=== PATIENT | female | born 1940 | race American Indian/Alaskan Native ===

== ENCOUNTER 2017-04-16 02:25 | Observation (INO) | payer MEDICARE, MEDICAID ==
--- NOTE | 2017-04-16 02:54 | ED PDOC ---
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 Also notes some occassional mild shortness of breath. Denies any fever, chills, headache, dizziness, abdominal pain, nausea, vomiting, diarrhea, urinary symptoms, or any other complaints at this time. PMD: Dr. Pedraza Time/Duration: Other (yesterday night ) Symptom Onset: Gradual Symptom Course: Unchanged Severity Level: Mild Activities at Onset: Light Context: Home Past Medical History - Provider Review Nursing Documentation Reviewed: Yes - Cardiac Hx Cardiac Disorders: Yes Hx Congestive Heart Failure: Yes Hx Hypertension: Yes - Pulmonary Hx Respiratory Disorders: No - Neurological Hx Neurological Disorder: Yes HX Cerebrovascular Accident: Yes (x 2,20 yrs. ago and 3 yrs. ago) - HEENT Hx Cataracts: Yes (bilateral) - Renal Hx Kidney Stones: Yes (many years ago x 1) - Endocrine/Metabolic Hx Endocrine Disorders: Yes Hx Diabetes Mellitus Type 2: Yes - Hematological/Oncological Hx Blood Disorders: No - Integumentary Hx Dermatological Disorder: No - Musculoskeletal/Rheumatological Hx Unsteady Gait: Yes (pt. is chairfast) - Gastrointestinal Hx Gastrointestinal Disorders: No - Genitourinary/Gynecological Hx Incontinence: Yes - Psychiatric Hx Psychophysiologic Disorder: No Hx Substance Use: No - Surgical History Hx [place]ary Stent: Yes ([place]) Hx Hysterectomy: Yes Other/Comment: right lumpectomy - Suicidal Assessment Feels Threatened In Home Enviroment: No Family/Social History - Physician Review Nursing Documentation Reviewed: Yes Family/Social History: No Known Family HX Smoking Status: Never Smoked Hx Alcohol Use: No Hx Substance Use: No Hx Substance Use Treatment: No Allergies/Home Meds Allergies/Adverse Reactions: Allergies No Known Allergies Allergy (Verified 04/16/17 13:23) Home Medications: Home Meds Medication Instructions Recorded Confirmed Atorvastatin [Lipitor] 20 mg PO DAILY 04/16/17 04/16/17 Celecoxib [Celebrex] 200 mg PO BID 04/16/17 04/16/17 Clopidogrel [Plavix] 75 mg PO DAILY 04/16/17 04/16/17 Ezetimibe [Zetia] 10 mg PO DAILY 04/16/17 04/16/17 Isosorbide Mononitrate [Imdur] 60 mg PO DAILY 04/16/17 04/16/17 Metoprolol Tartrate [Lopressor] 50 mg PO BID 04/16/17 04/16/17 Pantoprazole Sodium [Protonix] 20 mg PO DAILY 04/16/17 04/16/17 Potassium Chloride [Klor-Con 10] 10 meq PO DAILY 04/16/17 04/16/17 hydroCHLOROthiazide [Microzide] 50 mg PO DAILY 04/16/17 04/16/17 metFORMIN [glucOPHAGE] 500 mg PO DAILY 04/16/17 04/16/17 miSOPROStol [Cytotec] 200 mcg PO PRN PRN 04/16/17 04/16/17 Review of Systems - Physician Review All systems were reviewed & negative as marked: Yes - Review of Systems Constitutional: Normal. absent: Fatigue, Fevers Respiratory: SOB. absent: Cough, Sputum Cardiovascular: Chest Pain Gastrointestinal: Normal. absent: Abdominal Pain, Diarrhea, Nausea, Vomiting Neurological: Normal. absent: Headache, Dizziness Psychiatric: Normal Physical Exam Vital Signs Reviewed: Yes Vital Signs Temp Pulse Resp BP Pulse Ox 04/16/17 08:00 96 H 17 136/94 H 100 04/16/17 06:54 86 18 159/80 H 99 04/16/17 06:23 159/80 H 04/16/17 04:43 78 18 149/75 99 04/16/17 02:43 98.1 F 86 174/92 H 100 Temperature: Afebrile Blood Pressure: Hypertensive Pulse: Regular Respiratory Rate: Normal Appearance: Positive for: Well-Appearing, Non-Toxic Pain Distress: None Mental Status: Positive for: Alert and Oriented X 3 - Systems Exam Head: Present: Atraumatic, Normocephalic Pupils: Present: PERRL Conjunctiva: Present: Normal Mouth: Present: Moist Mucous Membranes Respiratory/Chest: Present: Clear to Auscultation, Good Air Exchange. No: Respiratory Distress, Accessory Muscle Use Cardiovascular: Present: Regular Rate and Rhythm, Normal S1, S2. No: Murmurs Abdomen: Present: Normal Bowel Sounds. No: Tenderness, Distention, Peritoneal Signs Upper Extremity: Present: Normal Inspection. No: Cyanosis, Edema Lower Extremity: Present: Normal Inspection. No: Edema Neurological: Present: GCS=15, CN II-XII Intact, Speech Normal, Motor Func Grossly Intact, Normal Sensory Function Skin: Present: Warm, Dry, Normal Color. No: Rashes Psychiatric: Present: Alert, Oriented x 3, Normal Insight, Normal Concentration Medical Decision Making ED Course and Treatment: 04/16/17 02:56 Impression: A 76 year old female who presents to the emergency department complaining of chest pain and mild shortness of breath since yesterday night. Plan: -- EKG -- Labs, cardiac enzymes -- Chest X-ray -- Reassess and disposition Progress Notes: 04/16/17 02:57 EKG interpreted by me: NSR @ 89 bpm. Right bundle branch block. Left anterior hemiblock. LVH. non- specific ST/T changes. 04/16/17 05:59 Case discussed with who is aware and agrees with the plan to observe patient at telemetry. Accepts patient under service with on consult. - Lab Interpretations Lab Results: 04/16/17 03:13 04/16/17 03:13 Lab Results 04/16/17 03:13: WBC 10.2 D, RBC 4.35, Hgb 12.2, Hct 35.6 L, MCV 81.8, MCH 28.0 , MCHC 34.3, RDW 14.4, Plt Count 380, MPV 9.4 04/16/17 03:13: Sodium 135, Potassium 3.7, Chloride 95, Carbon Dioxide 30, Anion Gap 14, BUN 24 H, Creatinine 1.1, Est GFR ( Amer) 58, Est GFR (Non- Af Amer) 48, Random Glucose 190 H, Calcium 9.7, Total Bilirubin 0.7, AST 33, ALT 30, Alkaline Phosphatase 122, Lactate Dehydrogenase 486, Total Creatine Kinase 272 H, CK-MB (CK-2) 4.6 H, CK-MB (CK-2) % Cancelled, Troponin I 0.03 D, NT-Pro-B Natriuret Pep 995 H, Total Protein 8.5 H, Albumin 4.3, Globulin 4.2, Albumin/Globulin Ratio 1.0 L 04/16/17 03:13: PT 10.7, INR 0.99, APTT 28.3 - RAD Interpretation Radiology Orders: 04/16/17 02:55 CHEST PORTABLE [RAD] Stat - Medication Orders Current Medication Orders: Discontinued Medications Acetaminophen (Tylenol 325mg Tab) 650 mg PO Q4H PRN PRN Reason: Pain, moderate (4-7) Last Admin: 04/17/17 03:10 Dose: 650 mg Albuterol/Ipratropium (Duoneb 3 Mg/0.5 Mg (3 Ml) Ud) 3 ml IH TIDRESP PAYAM Last Admin: 04/18/17 08:24 Dose: 3 ml Albuterol/Ipratropium (Duoneb 3 Mg/0.5 Mg (3 Ml) Ud) 3 ml IH [id number] PRN PRN Reason: Shortness of Breath Aminophylline (Aminophylline 25 Mg/Ml Inj) Confirm Administered Dose 250 mg .ROUTE .STK-MED ONE Stop: 04/17/17 10:39 Last Admin: 04/17/17 11:44 Dose: 100 mg Aspirin (Aspirin) 325 mg PO ONCE STA Stop: 04/16/17 06:00 Last Admin: 04/16/17 06:20 Dose: 325 mg Aspirin (Ecotrin) 81 mg PO DAILY ON LICENSE OF [facility] Last Admin: 04/18/17 10:20 Dose: 81 mg Atorvastatin Calcium (Lipitor) 20 mg PO DIN ON LICENSE OF [facility] Last Admin: 04/17/17 16:55 Dose: 20 mg Clopidogrel Bisulfate (Plavix) 75 mg PO DAILY ON LICENSE OF [facility] Clopidogrel Bisulfate (Plavix) 75 mg PO DAILY ON LICENSE OF [facility] Last Admin: 04/18/17 10:22 Dose: 75 mg Furosemide (Lasix) 20 mg IVP ONCE ONE Stop: 04/16/17 06:00 Last Admin: 04/16/17 06:23 Dose: 20 mg Guaifenesin (Robitussin) 100 mg PO Q4H PRN PRN Reason: Cough Last Admin: 04/18/17 10:22 Dose: 100 mg Hydrochlorothiazide (Hydrodiuril) 50 mg PO DAILY ON LICENSE OF [facility] Last Admin: 04/18/17 10:20 Dose: 50 mg Ceftriaxone Sodium (Rocephin 1 Gram Ivpb) 1 gm in 100 mls @ 100 mls/hr IVPB DAILY ON LICENSE OF [facility] PRN Reason: Protocol Last Admin: 04/18/17 10:23 Dose: 100 mls/hr Magnesium Sulfate 2 gm/ Sodium (Chloride) 104 mls @ 102 mls/hr IVPB ONCE ONE Stop: 04/17/17 14:27 Last Admin: 04/17/17 15:26 Dose: 102 mls/hr Insulin Human Lispro (Humalog Low) 0 units SC ACHS PAYAM PRN Reason: Protocol Insulin Human Lispro (Humalog Low) 0 units SC [facility] PAYAM PRN Reason: Protocol Last Admin: 04/18/17 08:33 Dose: Not Given Non-Admin Reason: Blood Sugar Parameter Isosorbide Mononitrate (Imdur) 60 mg PO DAILY ON LICENSE OF [facility] Last Admin: 04/18/17 10:21 Dose: 60 mg Methylprednisolone (Solu-Medrol) 40 mg IVP DAILY ON LICENSE OF [facility] Last Admin: 04/18/17 10:23 Dose: 40 mg Metoprolol Tartrate (Lopressor) 25 mg PO Q12 ON LICENSE OF [facility] Last Admin: 04/16/17 10:07 Dose: 25 mg Metoprolol Tartrate (Lopressor) 50 mg PO BRKDIN ON LICENSE OF [facility] Last Admin: 04/18/17 10:21 Dose: 50 mg Pantoprazole Sodium (Protonix Ec Tab) 20 mg PO 0730 ON LICENSE OF [facility] Last Admin: 04/18/17 10:22 Dose: 20 mg Potassium Chloride (K-Dur 20 Meq Er Tab) 20 meq PO STAT STA Stop: 04/16/17 06:00 Last Admin: 04/16/17 06:21 Dose: 20 meq Regadenoson (Lexiscan) Confirm Administered Dose 0.4 mg IVP .STK-MED ONE Stop: 04/17/17 10:39 Last Admin: 04/17/17 11:44 Dose: 0.4 mg Tramadol HCl (Ultram) 50 mg PO TID PRN PRN Reason: Pain, moderate (4-7) - Scribe Statement The provider has reviewed the documentation as recorded by the Scribe Puja Levi Provider Attestation: Provider Scribe Attestation: All medical record entries made by the Scribe were at my direction and personally dictated by me. I have reviewed the chart and agree that the record accurately reflects my personal performance of the history, physical exam, medical decision making, and the department course for this patient. I have also personally directed, reviewed, and agree with the discharge instructions and disposition. Disposition/Present on Arrival - Present on Arrival Any Indicators Present on Arrival: No History of DVT/PE: No History of Uncontrolled Diabetes: No Urinary Catheter: No History of Decub. Ulcer: No History Surgical Site Infection Following: None - Disposition Have Diagnosis and Disposition been Completed?: Yes Diagnosis: Chest pain, CHF (congestive heart failure) Disposition: HOSPITALIZED Disposition Time: 05:58 Patient Plan: Observation Condition: STABLE
[2017-04-16 03:34] LABS: HEMATOCRIT 35.6 % (36.0-48.0); MEAN CELL VOLUME 81.8 fL (80.0-105.0); MEAN CORPUSCULAR HGB CONC 34.3 g/dl (31.0-37.0); MEAN PLATELET VOLUME 9.4 fl (7.0-11.0); RED CELL DISTRIBUTION WIDTH 14.4 % (11.5-14.5); WHITE BLOOD COUNT 10.2 10^3/ul (4.5-11.0)
[2017-04-16 03:41] LABS: INR 0.99 (0.93-1.08); PARTIAL THROMBOPLASTIN TIME 28.3 Seconds (23.7-30.8)
[2017-04-16 03:46] LABS: BILIRUBIN,TOTAL 0.7 mg/dL (0.2-1.3); CALCIUM 9.7 mg/dL (8.4-10.5); POTASSIUM 3.7 mmol/L (3.6-5.0); TOTAL PROTEIN 8.5 g/dL (5.8-8.3)
[2017-04-16 03:53] LABS: TROPONIN I 0.03 ng/mL
[2017-04-16] MEDS ORDERED: Potassium Chloride 20 mEq ER Tab PO STA (05:59)
--- NOTE | 2017-04-16 08:30 | RAD ---
HISTORY: fever COMPARISON: 01/02/2016 FINDINGS: LUNGS: No active pulmonary disease. PLEURA: No significant pleural effusion identified, no pneumothorax apparent. CARDIOVASCULAR: Mild cardiomegaly OSSEOUS STRUCTURES: No significant abnormalities. VISUALIZED UPPER ABDOMEN: Normal. OTHER FINDINGS: None. IMPRESSION: No active disease.
--- NOTE | 2017-04-16 10:05 | CARD ---
APPROVED REPORT EKG Measurement Heart [id number] MA [id number] [id number] <Conclusion> Normal sinus rhythm Right bundle branch block Left anterior fascicular block Bifascicular block Left ventricular hypertrophy STTW changes c/w ischemia No change
[2017-04-16] MEDS: Insulin Lispro (humaLOG) LOW Coverage SC SCH ×3 (13:19→22:23)
--- NOTE | 2017-04-16 14:04 | CON ---
DATE: 04/16/2017 REASON FOR CONSULTATION AND FOLLOWUP: Cardiac evaluation, admitted with cold, cough, congestion and nausea, vomiting. BRIEF CLINICAL HISTORY: This is a 76-year-old female with a past medical history significant for str cindi, left-sided residual weakness, hypertension, hyperlipidemia, CAD, non-STEMI. Came to the Emergen cy Room with a complaint of some chest discomfort earlier today and last night and feels cold, conges tion, cough and nausea and vomited. Denies any chest pain at all at this time. PAST MEDICAL HISTORY: Significant for CVA, obesity, hypertension, diabetes, coronary artery disease, status post PTCA in the past, hyperlipidemia. SOCIAL HISTORY: Denies smoking. Denies any history of alcohol abuse. History of PTCA and stent on 04/19/2011. PREVIOUS CARDIAC WORKUP: History of PTCA with a stent 04/19/2011. History of echocardiography 016 that shows ejection fraction 60%-65%, mild to moderate aortic regurgitation, trace to mild mitral regurgitation, mild to moderate tricuspid regurgitation, RV systolic pressure 52. Last carotid dupl ex on 07/21/2012 shows bilateral 20%-39% ICA stenosis, 07/21/2012. EKG today showed normal sinus, righ t bundle branch block, left anterior fascicular block, bifascicular block, ST-T changes consistent wi th ischemia, no significant change from before. REVIEW OF SYSTEMS: As per HPI. PHYSICAL EXAMINATION: VITAL SIGNS: Temperature afebrile, heart rate 78, blood pressure 136/94. HEENT: PERRLA. Extraocular muscles intact. NECK: Supple. No carotid bruits. No thyromegaly. CHEST: Clear to auscultation. HEART: S1, S2 regular. ABDOMEN: Soft. EXTREMITIES: Clubbing, cyanosis negative. BLOOD WORKUP: WBC 10.8, hemoglobin 12. , hematocrit 35.6, platelet count 380. Chemistry shows s odium 135, potassium 3.7, chloride 95, carbon dioxide 30, anion gap of 24, BUN 14, creatinine 1.1. T roponin 0.03. Chest x-ray is underpenetrated films, but no definite CHF noted. REVIEW OF SYSTEMS: As per HPI. IMPRESSION: Cough, congestion, rule out myocardial infarction, unlikely, history of coronary artery disease with stent, last stent was done on 04/19/2011, history of cerebrovascular accident, bilateral carotids in 2012 had mild disease, cough, last echo shows preserved left ventricular function, 016, ejection fraction 60%-65%, mild to moderate aortic regurgitation, trace to mild mitral regurgita tion, mild to moderate tricuspid regurgitation, right ventricular systolic pressure 52, coronary liat ry disease, congestive heart failure. RECOMMENDATION: We will resume medication. We will add lipid profile, TSH, hemoglobin A1c. Will di scuss with the patient. If the patient agrees, we will proceed for a stress test. Further recommend ation depending upon the workup. We will follow with you. Thank you, Dr. Jiang, for providing us the opportunity in taking care of the patient. The patient is complaining of chest pain, but so far first troponin is negative. Wait for serial CPK. If the C PK remains negative, we will schedule a stress test tomorrow. Thank you, Dr. Jiang, for providing us the opportunity in taking care of the patient. We will fol low. Janay Beasley MD cc: [id number] TT: 04/16/2017 13:56:28 Confirmation # [id number] Dictation # [id number] en 04/16/2017 13:03:26
[2017-04-16] MEDS ORDERED: Insulin Lispro (humaLOG) LOW Coverage SC SCH (16:30)
[2017-04-16] MEDS: Albuterol-Ipratrop 3 mg / 0.5 (3 ml) UD IH SCH ×2 (16:50→19:38)
[2017-04-16 17:22] VITALS: BMI 35.6
--- NOTE | 2017-04-16 20:12 | HP ---
CHIEF COMPLAINT AND HISTORY OF PRESENT ILLNESS: This is a 76-year-old female who is coming into the hospital with complaints of chest pain, cough, congestion, shortness of breath. The patient says lashanda t she has been having these symptoms for the last few days. She was nauseated and had vomiting last night. She does have a history of coronary artery disease, hypertension, dyslipidemia. She had a st roke with left-sided weakness. She denies any fevers or chills. No dysuria or frequency. REVIEW OF SYSTEMS: All other review of symptoms are within normal limits except as mentioned. PAST MEDICAL HISTORY: CVA, hypertension, diabetes type 2, coronary artery disease, dyslipidemia. SOCIAL HISTORY: She does not smoke or drink. FAMILY HISTORY: Her other of stomach cancer. Father of unknown causes. HOME MEDICATIONS: Protonix, metoprolol, Lipitor, isosorbide, hydrochlorothiazide. PHYSICAL EXAMINATION: VITAL SIGNS: Temperature is 98.1, pulse of 96, blood pressure 136/94, respiration is 17, O2 saturati on is 100%, height is 5 feet, weight is 189 pounds, BMI . GENERAL: Patient lying in bed, flat, and in no apparent distress. HEAD AND NECK EXAM: Atraumatic, normocephalic. Conjunctivae are pink. Throat clear and mouth with moist mucosa. Oropharynx benign. EYES: Extraocular movements are intact. PERRLA. NECK: Supple. No JVD, thyromegaly, or adenopathy. No bruits. HEART: S1 and S2 regular rate and rhythm. No murmurs, rubs, or gallops. LUNGS: Bilateral wheezing. No rales or rhonchi. Good air entry. ABDOMEN: Soft, nontender, nondistended. Bowel sounds are positive in all quadrants. No rebound. No hepatosplenomegaly. EXTREMITIES: No cyanosis, clubbing, or edema. NEURO: No facial asymmetry, tongue is midline, no uvula deviation. Power is 5/5 in upper extremity and 5/5 in lower extremity. Sensation is normal in upper extremity and lower extremity. PSYCH: Awake, alert, oriented x3. No anxiety or depression symptoms. Good insight. Normal affec t. : No CVA tenderness VASCULAR: 2+ pulses in carotid and pedal pulses. SKIN: No erythema or abnormal nodules noted. SPINE: Normal curvature. LYMPHADENOPATHY: No anterior cervical or posterior cervical adenopathy. No inguinal adenopathy. LABORATORY DATA: White count of 10.2, hemoglobin 12.2. Chemistry shows a sodium of 135, potassium i s 3.7, creatinine is 1.1. Troponin is 0.03. Albumin is 4.3. INR is 0.99. Chest x-ray shows no active disease. EKG shows sinus rhythm, right bundle branch block, nonspecific. There is LVH. ProBNP is 995. ASSESSMENT: 1. Acute chronic obstructive pulmonary disease exacerbation. 2. Bronchitis. 3. Coronary artery disease. 4. Diabetes type 2. 5. Hypertension. 6. History of cerebrovascular accident. PLAN: The patient is going to be admitted to the hospital. She is going to be placed on nebulizer t reatments. She is going to continue her isosorbide. She is on Lipitor for dyslipidemia. She is on metoprolol. This will be continued. She is on Tylenol for her pain. She is on aspirin. The patien t is going to be on a heart healthy diet. She will most likely need a stress test. I will also plac e her on antibiotics with Rocephin. Repeat her blood work tomorrow. Ross Jiang MD cc: [id number] TT: 04/16/2017 20:11:39 volodymyr
[2017-04-16] MEDS: MethylPREDNISolone 40 mg Vial IVP SCH (20:48)
[2017-04-16] MEDS: cefTRIAXone 1 gm 1 GM/100 ML BAG IVPB SCH (20:49)
[2017-04-17 02:48] VITALS: RESP 20
[2017-04-17 07:06] LABS: ADD MANUAL DIFF? NO
--- NOTE | 2017-04-17 07:09 | PN ---
DATE: 04/17/2017 SUBJECTIVE: The patient has no complaints of any chest pain or shortness of breath, no headaches or dizziness. PHYSICAL EXAMINATION: VITAL SIGNS: Temperature is 98.7, pulse of 62, blood pressure 136/63, respiration is 20. GENERAL: The patient comfortable, in no acute distress. HEENT: Anicteric sclerae. Moist mucosa. NECK: No JVD or adenopathy. CARDIAC: S1/S2. No murmurs. No rubs. Regular. RESPIRATORY: Clear to auscultation bilaterally. No wheezes, rales, or rhonchi. Good air entry. ABDOMEN: Bowel sounds are positive, soft, nontender, and nondistended. EXTREMITIES: No edema. Has 1+ pulses. LABORATORY DATA: White count of 10.2, hemoglobin 12.2, creatinine is 1.1. ASSESSMENT: 1. Acute chronic obstructive pulmonary disease. 2. Bronchitis. 3. Coronary artery disease. 4. Diabetes type 2. 5. Hypertension. 6. History of cerebrovascular accident. PLAN: The patient is currently comfortable. She had initial troponin that was negative. She is saul christian seen by Dr. Beasley from cardiology. The patient has been placed on her hydrochlorothiazide for her hypertension. She is going to continue with aspirin and metoprolol for chest pain. She is on Lipito r for dyslipidemia. She is going to continue with Plavix. She has a stress test that has been order ed for today. She is on a heart healthy7 diet. If the stress test is negative, the patient may be d ischarged. The patient has also been placed on antibiotics, Rocephin, for her cough and congestion. Her blood work is pending from this morning. Ross Jiang MD cc: [id number] TT: 04/17/2017 07:08:27 Confirmation # [id number] Dictation # [id number] tn
[2017-04-17 07:15] LABS: BASO # 0.01 K/mm3 (0.0-2.0); BASO % 0.2 % (0.0-3.0); GRAN # 5.16 (1.4-6.5); HEMATOCRIT 36.2 % (36.0-48.0); LYMPH # 0.9 (1.2-3.4); LYMPH % 13.7 % (22.0-35.0); MEAN CELL VOLUME 82.5 fL (80.0-105.0); MEAN CORPUSCULAR HEMOGLOBIN 27.1 pg (25.0-35.0); MEAN CORPUSCULAR HGB CONC 32.9 g/dl (31.0-37.0); MEAN PLATELET VOLUME 9.7 fl (7.0-11.0); MONO # 0.3 (0.1-0.6); MONO % 4.1 % (1.0-6.0); PLATELET COUNT 349 10^3/uL (120.0-450.0); RED CELL DISTRIBUTION WIDTH 14.6 % (11.5-14.5); WHITE BLOOD COUNT 6.3 10^3/ul (4.5-11.0)
[2017-04-17] MEDS: Albuterol-Ipratrop 3 mg / 0.5 (3 ml) UD IH SCH ×3 (08:05→20:42)
[2017-04-17 08:16] LABS: TROPONIN I 0.02 ng/mL
[2017-04-17 08:26] LABS: BILIRUBIN,TOTAL 0.7 mg/dL (0.2-1.3); CALCIUM 9.5 mg/dL (8.4-10.5); MAGNESIUM 1.4 mg/dL (1.7-2.2); PHOSPHOROUS 3.9 mg/dL (2.5-4.5); POTASSIUM 3.7 mmol/L (3.6-5.0); TOTAL PROTEIN 7.8 g/dL (5.8-8.3)
[2017-04-17] MEDS: Insulin Lispro (humaLOG) LOW Coverage SC SCH ×4 (08:47→22:13)
[2017-04-17] MEDS: MethylPREDNISolone 40 mg Vial IVP SCH (08:47)
[2017-04-17] MEDS ORDERED: Aminophylline 25 mg/ml Inj ONE (10:38)
[2017-04-17] MEDS: Pantoprazole 20 mg EC Tab PO SCH (13:04)
[2017-04-17] MEDS ORDERED: Magnesium Sulfate 2 GM in Sodium Chloride 0.9% 100 ML IVPB ONE (13:26)
--- NOTE | 2017-04-17 14:15 | PN ---
DATE: 04/17/2017 The patient is in room 360, bed 1. REASON FOR CONSULTATION AND FOLLOWUP: Cold, cough, congestion, nausea, vomiting, history of coronary artery disease. HISTORY OF PRESENT ILLNESS: A 76-year-old female with past medical history significant for CVA with left-sided residual weakness, hypertension, hyperlipidemia, coronary artery disease, non-STEMI, statu s post stent insertion on 04/19/2011, admitted with complaint of having cough, feels congestion, nausea , vomiting. Also felt some chest discomfort. The patient today is feeling better. Denies chest clint n. She still has some cough, but breathing is better. The patient's cardiac history is mentioned in our consult of 04/16/2017. PHYSICAL EXAMINATION: VITAL SIGNS: Blood pressure 136/63, respirations 20, pulse 62, temperature 98.7. HEENT: Head is normocephalic. Eyes: Pupils normal. Conjunctivae are normal. Nose and throat norm al. NECK: JVP low. Carotids equal. THORAX: AP diameter normal. LUNGS: Few wheezing sounds are heard. No rales. CARDIOVASCULAR: S1, S2, systolic murmur, no rub. ABDOMEN: Soft, nontender, no organomegaly. Bowel sounds normal. EXTREMITIES: No clubbing, no cyanosis. LABORATORY DATA: WBC 6.3, hemoglobin 11.9, hematocrit 36.2, platelet 349. Sodium 134, potassium 3.7 , BUN 23, creatinine 1.1, random glucose 250, magnesium 1.4. Calcium, phosphorus normal. TSH 0.27. Total protein and albumin normal. Troponin negative. DIAGNOSES: Cough, congestion, rule out myocardial infarction, which is unlikely, history of coronary artery disease with stent insertion on 04/19/2011, history of old cerebrovascular accident. Echo on showed ejection fraction 60%-65%, mild to moderate aortic regurgitation, trace to mild jamin l regurg, mild to moderate tricuspid regurgitation, right ventricle systolic pressure of 52 mmHg, cor onary artery disease, congestive heart failure. PLAN: The patient's magnesium is low, will give magnesium therapy. The patient had echo yesterday a nd patient will have a stress test today. TSH is low. Will repeat T3, T4 and TSH. The patient on a spirin 81 daily, HydroDIURIL 50 mg daily, isosorbide mono 60 daily, atorvastatin 20 mg daily, metopro lol 50 b.i.d., Plavix 75 daily, Rocephin 1 gram IV daily, Solu-Medrol 40 mg IV daily. We will follow with you. Janay De Souza MD cc: [id number] TT: 04/17/2017 14:15:00 Confirmation # [id number] Dictation # [id number] rn
[2017-04-17] MEDS: cefTRIAXone 1 gm 1 GM/100 ML BAG IVPB SCH (15:25)
[2017-04-17] MEDS ORDERED: Albuterol-Ipratrop 3 mg / 0.5 (3 ml) UD IH PRN (20:24)
--- NOTE | 2017-04-17 22:08 | CARD ---
APPROVED REPORT Protocol: LEXISCAN Test Type: Lexiscan Sestamibi Stress Test Attending Physician: Dr. Janay De Souza Referring Physician: Dr. Alexis Pedraza Test Indications: Chest Pain Height:5 ft 1 in Weight:189lbs Medications: ASA Lipitor Plavix HCTZ Insulin Lopressor Medical History: 76 y/o female hx of chest pain Target HR: 144 bpm Resting ECG: RSR. RBBB. ST_T Changes. Resting Heart Rate: 90 bpm Resting Blood Pressure: 142/96mmHg Submaximum (85%): 122 bpm PROCEDURE Pharmacologic stress testing was performed using 0.4mg per 5ml of regadenoson given intravenously over 7-10 seconds. Reversal agent aminophyline 100 mg, given intravenously for Dyspnea.Chest Pain. POST EXERCISE Reason for Termination: Protocol completed Target HR: No Max HR: 87 bpm 75% of Maximum Predicted HR: 144 bpm Exercise duration: 00:30 min:sec, 0 Stage Exercise capacity: 1.0METs Max Blood Pressure: 142/96mmHg Blood Pressure response to exercise: resting hypertension - appropriate response Heart Rate response to exercise: appropriate Chest Pain: No, none Angina index: 0 Arrhythmia: No, none ST Change: Yes, No Additional ST_T Changes. Deviation: 0 mm INTERPRETATION Stress EKG Conclusion: IV LEXISCAN NUCLEAR STRESS TEST NEGATIVE FOR CHEST PAIN AND NEGATIVE FOR ADDITIONAL ST-T CHANGES. NUCLEAR SCAN REPORT PENDING. Signed by Janay De Souza Electronically Approved: 04/17/2017 13:34:24 EXAM: Myocardial Perfusion REST/STRESS Stress Test Type: Pharmacologic Imaging Protocol Rest Spect myocardial perfusion imaging was performed in supine position 45 minutes following the injection of 10.8 mCi of Tc-99 Myoview. At peak stress, the patient was injected intravenously with 30.9mCi of Tc-99 tetrofosmin after an infusion time of 0 minutes and 10 seconds. Gated Stress Spect was performed 80 minutes after intravenous Tc-99 Myoview injection. The images were gated to evaluate regional wall motion and calculate ventricular ejection fraction.Images were reconstructed using backfilter projection method in short horizontal and verticle long axis. Spect slices were generated. LV Perfusion The quality of the study is good. The left ventricle is within normal limits in size with thickened myocardium. The right ventricle is unremarkable. The lung uptake is normal. The distribution of tracer reveals mildly and diffusely decreased perfusion involving anterior wall on the stress study. The remainder of the LV myocardium is unremarkable. The rest myocardial perfusion study shows no significant change. Wall Motion Wall motion study shows good contractility of the left ventricle. LVEF = 69%. Conclusion 1. Essentially normal SPECT myocardial perfusion study. 2. Fixed, anterior defect is most likely due to breast attenuation. 3. Normal gated wall motion of the left ventricle.
[2017-04-18] MEDS: guaiFENesin 100 mg/5 ml Syrup UD PO PRN ×2 (01:05→10:22)
[2017-04-18 01:21] VITALS: TEMP 98.2
[2017-04-18 07:30] LABS: CALCIUM 9.6 mg/dL (8.4-10.5); PHOSPHOROUS 3.3 mg/dL (2.5-4.5); POTASSIUM 3.5 mmol/L (3.6-5.0)
[2017-04-18 07:39] LABS: FREE T4 1.04 ng/dL (0.78-2.19)
[2017-04-18 07:53] LABS: T3 0.88 ng/mL (0.97-1.69); THYROID STIMULATING HORMONE 1.55 mIU/mL (0.46-4.68)
[2017-04-18 07:57] VITALS: BP 143/62; PULSE 69; O2SAT 98
--- NOTE | 2017-04-18 08:13 | DS ---
This is a 76-year-old female who had come into the hospital with complaints of upper respiratory trac t symptoms. She also was having chest pain. She had a stress test done and it was a normal stress t est. The patient's EF was 69%. She is going to be discharged home to follow as an outpatient. She says that her cough and congestion is better. She has no complaints. PHYSICAL EXAMINATION: VITAL SIGNS: Temperature is 98.2, pulse of 91, blood pressure 167/71, respirations 20, O2 saturation is 100%. GENERAL: The patient comfortable, in no acute distress. HEENT: Anicteric sclerae. Moist mucosa. NECK: No JVD or adenopathy. CARDIAC: S1/S2. No murmurs. No rubs. Regular. RESPIRATORY: Clear to auscultation bilaterally. No wheezes, rales, or rhonchi. Good air entry. ABDOMEN: Bowel sounds are positive, soft, nontender, and nondistended. EXTREMITIES: No edema. Has 1+ pulses. ASSESSMENT: 1. Chest pain secondary to upper respiratory tract infection. 2. Acute chronic obstructive pulmonary disease, improved. 3. Bronchitis. 4. Coronary artery disease. 5. Diabetes type 2. 6. Hypertension. 7. History of cerebrovascular accident. PLAN: The patient is currently on Lipitor for dyslipidemia. She is going to be on hydrochlorothiazi de for hypertension. She is on aspirin. She is going to continue with her Plavix. She is on Proton ix. She is on IV antibiotics with Rocephin. She is going to be discharged home today. CONDITION: Stable. ACTIVITIES: Increase as tolerated. Follow up with Dr. Pedraza and Dr. Jiang in 1-2 weeks. Ross Jiang MD cc: [id number] TT: 04/18/2017 08:12:38 ne
[2017-04-18] MEDS: Albuterol-Ipratrop 3 mg / 0.5 (3 ml) UD IH SCH (08:24)
[2017-04-18] MEDS: Insulin Lispro (humaLOG) LOW Coverage SC SCH (08:33)
[2017-04-18] MEDS: Pantoprazole 20 mg EC Tab PO SCH (10:22)
[2017-04-18] MEDS: cefTRIAXone 1 gm 1 GM/100 ML BAG IVPB SCH (10:23)
[2017-04-18] MEDS: MethylPREDNISolone 40 mg Vial IVP SCH (10:23)
--- NOTE | 2017-04-23 12:03 | CARD ---
APPROVED REPORT EXAM: Two-dimensional and M-mode echocardiogram with Doppler and color Doppler. INDICATION Chest Pain 2D DIMENSIONS IVSd1.3 (0.7-1.1cm)LVDd4.8 (3.9-5.9cm) PWd1.3 (0.7-1.1cm)LVDs2.5 (2.5-4.0cm) FS (%) 47.9 %LVEF (%)79.2 (>50%) M-Mode DIMENSIONS Left Atrium (MM)3.70 (2.5-4.0cm)Aortic Root3.80 (2.2-3.7cm) Aortic Cusp Exc.1.60 (1.5-2.0cm) Aortic Valve AoV Peak Fbrsyuul126.0cm/sAoV VTI30.7cmAO Peak GR.12mmHg LVOT Peak Tjvibovo529.0cm/sLVOT VTI29.80cmAO Mean GR.6mmHg AI P 1/2 Wuyk106em Mitral Valve MV E Borxclyq95.1cm/sMV A Vsfrrqmo530.0cm/sE/A ratio0.6 TDI Lateral E' Peak V5.85cm/sMedial E' Peak V4.39cm/sE/Lateral E'11.8 E/Medial E'15.7 Tricuspid Valve TR Peak Uanzbtdi967pf/sRAP [id number] Peak Gr.38mmHg PVYR08zbRa LEFT VENTRICLE The left ventricle is normal size. There is mild to moderate concentric left ventricular hypertrophy. The left ventricular function is normal.EF-70% There is normal LV segmental wall motion. Transmitral Doppler flow pattern is Grade III-reversible restrictive diastolic dysfunction. No left ventricle thrombus noted on this study. There is no ventricular septal defect visualized. There is no left ventricular aneurysm. RIGHT VENTRICLE The right ventricle is normal size. There is normal right ventricular wall thickness. The right ventricular systolic function is normal. ATRIA The left atrium is borderline dilated. The right atrium size is normal. The interatrial septum is intact with no evidence for an atrial septal defect. AORTIC VALVE The aortic valve is thickened but opens well. There is mild aortic regurgitation. Aortic Scleroseis Vs Mild As There is no aortic valvular vegetation. MITRAL VALVE The mitral valve is thickened but opens well. Mitral regurgitation is mild. There is no mitral valve stenosis. There is no evidence of mitral valve prolapse. TRICUSPID VALVE The tricuspid valve leaflets are thickened , but open well. There is mild to moderate tricuspid regurgitation.RVSP-48 mmof Hg. There is no tricuspid valve stenosis. There is no tricuspid valve prolapse or vegetation. PULMONIC VALVE The pulmonic valve is mildly thickened. There is trace pulmonic valvular regurgitation. There is no pulmonic valvular stenosis. GREAT VESSELS The aortic root is normal in size. The ascending aorta is normal in size. The pulmonary artery is normal. The IVC is normal in size and collapses >50% with inspiration. PERICARDIAL EFFUSION There is no pleural effusion. There is no pericardial effusion. <Conclusion> There is mild to moderate concentric left ventricular hypertrophy. The left ventricular function is normal.EF-70% There is normal LV segmental wall motion. There is mild aortic regurgitation. Aortic Scleroseis Vs Mild As Mitral regurgitation is mild. There is mild to moderate tricuspid regurgitation.RVSP-48 mmof Hg. The IVC is normal in size and collapses >50% with inspiration. There is no pericardial effusion.
== END 2017-04-18 14:03 | disposition home or self-care (01) ==
LOC: ED 02:25 → ERH 06:00 → UNDOADMOB 06:00 → ERH 08:02 → 3RNO 09:38 → UNDODISOB 04-18 14:03
PROVIDERS: ADMIT Internal Medicine Nephrology; ATTEND Internal Medicine Nephrology
DX: J44.1 Chronic obstructive pulmonary disease with (acute) exacerbation (principal); J06.9 Acute upper respiratory infection, unspecified; I25.10 Atherosclerotic heart disease of native coronary artery without angina pectoris; E11.9 Type 2 diabetes mellitus without complications; I11.0 Hypertensive heart disease with heart failure; I50.9 Heart failure, unspecified; I08.3 Combined rheumatic disorders of mitral, aortic and tricuspid valves; E78.5 Hyperlipidemia, unspecified; I69.354 Hemiplegia and hemiparesis following cerebral infarction affecting left non-dominant side; I25.2 Old myocardial infarction; E66.9 Obesity, unspecified; Z68.35 Body mass index [BMI] 35.0-35.9, adult; Z95.5 Presence of coronary angioplasty implant and graft; Z79.84 Long term (current) use of oral hypoglycemic drugs
CPT/HCPCS: 36415; 71010; 78452; 80048; 80053; 80061; 82550; 82553; 83036; 83615; 83735; 83880; 84100; 84439; 84443; 84480; 84484; 85025; 85027; 85610; 85730; 93005; 93017; 93306; 94640; 96374; 99285; A9502; G0378; J0280; J0696; J1940; J2785; J2920; J3475

== ENCOUNTER 2017-07-03 15:29 | Inpatient (IN) | payer MEDICARE, MEDICAID ==
[2017-07-03 15:45] VITALS: BMI 32.1
--- NOTE | 2017-07-03 16:07 | ED PDOC ---
Arrival/HPI - General Historian: Patient - History of Present Illness Time/Duration: < week Symptom Onset: Sudden Symptom Course: Unchanged Activities at Onset: Eating Context: Home <Lorena Veliz - Last Filed: 07/03/17 21:56> <Zaria Stout - Last Filed: 07/03/17 22:07> - General Chief Complaint: Abdominal Pain Time Seen by Provider: 07/03/17 15:34 - History of Present Illness Narrative History of Present Illness (Text): 07/03/17 16:04 76 year old female with past medical history of HTN, HLD, CAD s/p stents, CVA with left sided residual weakness, NIDDM presents for nausea and vomiting x a few days. Patient states that she has been vomiting every time she tried to eat or drink anything. Vomit is NB/NB in nature. Vomiting is accompanied with epigastric abdominal pain. Patient denies having any F/C, CP, SOB, dysuria, C/ D. Yesterday patient's blood sugar at home was in 400s which is very high for patient. Patient lives at home alone and has home health care case manager who comes over regularly. 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 ( [place]orena) Past Medical History - Provider Review Nursing Documentation Reviewed: Yes - Travel History Have you recently traveled outside [place] w/in the past 3 mons?: No - Cardiac Hx Cardiac Disorders: Yes Hx Congestive Heart Failure: Yes Hx Hypertension: Yes - Pulmonary Hx Respiratory Disorders: No - Neurological Hx Neurological Disorder: Yes HX Cerebrovascular Accident: Yes (x 2,20 yrs. ago and 3 yrs. ago) - HEENT Hx HEENT Disorder: Yes Hx Cataracts: Yes (bilateral) - Renal Hx Renal Disorder: Yes Hx Kidney Stones: Yes (many years ago x 1) - Endocrine/Metabolic Hx Endocrine Disorders: Yes Hx Diabetes Mellitus Type 2: Yes - Hematological/Oncological Hx Blood Disorders: No - Integumentary Hx Dermatological Disorder: No - Musculoskeletal/Rheumatological Hx Musculoskeletal Disorders: Yes Hx Unsteady Gait: Yes (pt. is chairfast) - Gastrointestinal Hx Gastrointestinal Disorders: No - Genitourinary/Gynecological Hx Genitourinary Disorders: Yes Hx Incontinence: Yes - Psychiatric Hx Psychophysiologic Disorder: No Hx Substance Use: No - Surgical History Hx Coronary Stent: Yes ([place]) Hx Hysterectomy: Yes Other/Comment: right lumpectomy - Anesthesia Hx Anesthesia Reactions: No Hx Malignant Hyperthermia: No - Suicidal Assessment Feels Threatened In Home Enviroment: No <Lorena Veliz - Last Filed: 07/03/17 21:56> Family/Social History - Physician Review Nursing Documentation Reviewed: Yes Family/Social History: Unknown Family HX Smoking Status: Never Smoked Hx Alcohol Use: No Hx Substance Use: No Hx Substance Use Treatment: No <KerenLorena - Last Filed: 07/03/17 21:56> Allergies/Home Meds <KerenLorena - Last Filed: 07/03/17 21:56> <Zaria Stout - Last Filed: 07/03/17 22:07> Allergies/Adverse Reactions: Allergies No Known Allergies Allergy (Verified 07/03/17 16:17) Home Medications: Home Meds Medication Instructions Recorded Confirmed Atorvastatin [Lipitor] 20 mg PO DAILY 04/16/17 07/03/17 Celecoxib [Celebrex] 200 mg PO BID 04/16/17 07/03/17 Clopidogrel [Plavix] 75 mg PO DAILY 04/16/17 07/03/17 Ezetimibe [Zetia] 10 mg PO HS 04/16/17 07/03/17 Isosorbide Mononitrate [Imdur] 60 mg PO DAILY 04/16/17 07/03/17 Metoprolol Tartrate [Lopressor] 50 mg PO BID 04/16/17 07/03/17 Potassium Chloride [Klor-Con 10] 10 meq PO DAILY 04/16/17 07/03/17 hydroCHLOROthiazide [Microzide] 50 mg PO DAILY 04/16/17 07/03/17 metFORMIN [glucOPHAGE] 500 mg PO DAILY 04/16/17 07/03/17 miSOPROStol [Cytotec] 200 mcg PO DAILY 04/16/17 07/03/17 Aspirin [Aspirin Chewable] 81 mg PO DAILY 07/03/17 07/03/17 Cholecalciferol (Vitamin D3) 400 unit PO DAILY 07/03/17 07/03/17 [Vitamin D3] Docusate Sodium [Stool Softener] 100 mg PO PRN PRN 07/03/17 07/03/17 Furosemide [Lasix] 40 mg PO BID 07/03/17 07/03/17 Multivit-Min/FA/Lycopen/Lutein 1 tab PO DAILY 07/03/17 07/03/17 [Centrum Silver Tablet] Review of Systems - Review of Systems Constitutional: Normal. absent: Fatigue, Fevers Eyes: Normal. absent: Vision Changes, Photophobia ENT: Normal. absent: Hearing Changes, Rhinorrhea, Sinus Congestion Respiratory: Normal. absent: SOB, Cough, Sputum, Wheezing Cardiovascular: Normal. absent: Chest Pain, Edema, Calf Pain Gastrointestinal: Abdominal Pain (epigastric abdominal pain with vomiting ), Nausea, Vomiting, Food Intolerance. absent: Constipation, Diarrhea, Hematochezia, Hematemesis Genitourinary Female: Normal. absent: Dysuria, Frequency, Hematuria Musculoskeletal: Normal. absent: Arthralgias, Back Pain, Neck Pain Skin: Normal. absent: Rash, Pruritis, Skin Lesions Neurological: Normal. absent: Headache, Dizziness Endocrine: Polydipsia. absent: Diaphoresis, Polyuria Hemo/Lymphatic: Normal. absent: Adenopathy Psychiatric: Normal. absent: Anxiety, Depression <Amn Kerena - Last Filed: 07/03/17 21:56> Physical Exam Vital Signs Reviewed: Yes Temperature: Afebrile Blood Pressure: Normal Pulse: Tachycardic Respiratory Rate: Normal Appearance: Positive for: Well-Appearing, Non-Toxic, Comfortable Pain Distress: None Mental Status: Positive for: Alert and Oriented X 3 - Systems Exam Head: Present: Atraumatic, Normocephalic Extroacular Muscles: Present: EOMI Mouth: Present: Moist Mucous Membranes Respiratory/Chest: Present: Clear to Auscultation, Good Air Exchange. No: Respiratory Distress, Accessory Muscle Use, Wheezes, Rales, Rhonchi Cardiovascular: Present: Normal S1, S2, Tachycardic. No: Murmurs, Irregular Rhythm Abdomen: No: Tenderness, Distention, Peritoneal Signs, Rebound, Guarding Lower Extremity: Present: NORMAL PULSES. No: Edema, CALF TENDERNESS Neurological: Present: GCS=15, Speech Normal Skin: Present: Warm, Dry, Normal Color. No: Rashes, Diaphoretic Psychiatric: Present: Alert, Oriented x 3, Normal Insight, Normal Concentration <KerenLorena - Last Filed: 07/03/17 21:56> Medical Decision Making - RAD Interpretation Station Tender: ED Physician - EKG Interpretation Interpreted by ED Physician: Yes Type: 12 lead EKG <Lorena Veliz - Last Filed: 07/03/17 21:56> <Zaria Stout - Last Filed: 07/03/17 22:07> ED Course and Treatment: 07/03/17 16:09 76 year old female presents for intractable vomiting, nausea and occasional epigastric abd pain. Will check: CBC, CMP, lipase, cardiac enzymes, EKG, CXR, UA, urine culture, blood cultures, VBG shock panel, CT abd/pelvis Patient will be given zofran 07/03/17 20:31 Patient is noted to have JAJA. Spoke with Dr. Jiang who accepts patient under his service. CT of abd/pelvis without contrast ordered and pending. (Lorena Veliz) - Lab Interpretations Narrative Lab Interpretation (Text): 07/03/17 20:32 Cr 2.2 07/03/17 20:32 GFR is 29 (Lorena Veliz) 07/03/17 22:06 Patient seen and examined with resident with treatment and plan discussed together. Agree with plan for admission for renal failure. (Zaria Stout) Lab Results: 07/03/17 19:30 07/03/17 19:30 Lab Results 07/03/17 19:30: Sodium 130 L, Chloride 78 L, Potassium 2.9 L*, Carbon Dioxide 36 H, Anion Gap 19, BUN 69 H, Creatinine 2.0 H, Est GFR ( Amer) 29, Est GFR (Non-Af Amer) 24, Random Glucose 309 H* D, Calcium 10.1, Phosphorus 3.8, Magnesium 1.8, Total Bilirubin 0.7, AST 33, ALT 21, Alkaline Phosphatase 120, Lactate Dehydrogenase 474, Total Creatine Kinase 86, Troponin I 0.06 D, Total Protein 8.1, Albumin 4.2, Globulin 3.9, Albumin/Globulin Ratio 1.1, Lipase 290 07/03/17 19:30: WBC 8.5 D, RBC 4.68, Hgb 13.0, Hct 37.0, MCV 79.1 L, MCH 27.8, MCHC 35.1, RDW 13.5, Plt Count 427, MPV 9.8, Gran % 69.4 H, Lymph % (Auto) 21.8 L, [place] % (Auto) 7.6 H, Eos % (Auto) 0.7 L, Baso % (Auto) 0.5, Gran # 5.88, Lymph # 1.9, [place] # 0.6, Eos # 0.1, Baso # 0.04 07/03/17 19:30: pO2 42, VBG pH 7.52 H, VBG pCO2 53.0, VBG HCO3 43.3 H, VBG Total CO2 44.9 H, VBG O2 Sat (Calc) 86.5 H, VBG Base Excess 17.6 H, VBG Potassium 2.8 L, Sodium 132.0, Chloride 81.0 L, Glucose 314 H, Lactate 3.2 H, FiO2 21.0, Venous Blood Potassium 2.8 L 07/03/17 17:05: Urine Color Light yellow, Urine Appearance Clear, Urine pH 6.0, Ur Specific [place] 1.010, Urine Protein Negative, Urine Glucose (UA) Negative, Urine Ketones Negative, Urine Blood Negative, Urine Nitrate Negative, Urine Bilirubin Negative, Urine Urobilinogen 0.2, Ur Leukocyte Esterase Negative 07/03/17 16:19: POC Glucose (mg/dL) 246 H - RAD Interpretation Narrative RAD Interpretations (Text): 07/03/17 16:48 CXR unchanged from previous 07/03/17 21:56 CT abd/pelvis unremarkable 07/03/17 21:56 (Lorena Veliz) Radiology Orders: 07/03/17 16:01 CHEST PORTABLE [RAD] Stat 07/03/17 20:23 ABD & PELVIS W/O PO OR IV CONT [CT] Stat - EKG Interpretation EKG Interpretation (Text): 07/03/17 16:25 Sinus tachycardia HR of 104. Left sided axis. Bifasicular block. WA interval of 194. 07/03/17 16:38 No significant changes noted from previous EKG. Normal stress test in 04/2017 ( Lorena Veliz) - Medication Orders Current Medication Orders: Sodium Chloride (Sodium Chloride 0.9%) 1,000 mls @ 100 mls/hr IV .Q10H STA Stop: 07/04/17 03:20 Last Admin: 07/03/17 19:10 Dose: 100 mls/hr Potassium Chloride (Potassium Chloride 20 Meq/100 Ml) 20 meq in 100 mls @ 50 mls/hr IVPB Q2H PAYAM Stop: 07/04/17 00:29 Last Admin: 07/03/17 21:40 Dose: 50 mls/hr Discontinued Medications Famotidine (Pepcid) 20 mg IVP STAT STA Stop: 07/03/17 17:22 Last Admin: 07/03/17 19:10 Dose: 20 mg Iohexol (Omnipaque 350 100 Ml) Confirm Administered Dose 350 mg .ROUTE .STK-MED ONE Stop: 07/03/17 16:40 Ondansetron HCl (Zofran Inj) 4 mg IVP STAT STA Stop: 07/03/17 16:12 Last Admin: 07/03/17 17:11 Dose: 4 mg - PA / [employer] / Resident Statement / has reviewed & agrees with the documentation as recorded. / has examined the patient and agrees with the treatment plan. <Zaria Stout - Last Filed: 07/03/17 22:07> Disposition/Present on Arrival - Present on Arrival Any Indicators Present on Arrival: No History of DVT/PE: No History of Uncontrolled Diabetes: No Urinary Catheter: No History of Decub. Ulcer: No History Surgical Site Infection Following: None - Disposition Have Diagnosis and Disposition been Completed?: Yes Disposition Time: 20:33 Patient Plan: Admission <Lorena Veliz - Last Filed: 07/03/17 21:56> <Zaria Stout - Last Filed: 07/03/17 22:07> - Disposition Diagnosis: JAJA (acute kidney injury), Vomiting Disposition: HOSPITALIZED Patient Problems: Current Active Problems Problem Status Onset JAJA (acute kidney injury) Acute Vomiting Acute Condition: STABLE
[2017-07-03] MEDS ORDERED: Iohexol 350 MG/100 ML VIAL ONE (16:39)
[2017-07-03] MEDS ORDERED: Sodium Chloride 0.9% 1,000 ML IV STA (17:21)
[2017-07-03 17:57] LABS: URINE BILIRUBIN NEGATIVE (NEGATIVE); URINE BLOOD NEGATIVE (NEGATIVE); URINE GLUCOSE (UA) NEGATIVE (NEGATIVE); URINE KETONE NEGATIVE (NEGATIVE); URINE LEUKOCYTE ESTERASE NEGATIVE Leu/uL (NEGATIVE); URINE PROTEIN NEGATIVE mg/dL (<30 mg/dL); URINE UROBILINOGEN 0.2 E.U./dL (<1 E.U./dL)
[2017-07-03 17:59] LABS: URINE APPEARANCE CLEAR (CLEAR); URINE COLOR LIGHT YELLOW (YELLOW)
--- NOTE | 2017-07-03 18:48 | RAD ---
HISTORY: epigastric pain COMPARISON: Comparison chest dated 04/16/2017 FINDINGS: LUNGS: Poor inspiration with low lung volumes, crowded bronchovascular markings and mild bibasilar atelectasis right greater than left. Developing lower lobe infiltrate could be excluded followup radiographs. PLEURA: No significant pleural effusion identified, no pneumothorax apparent. CARDIOVASCULAR: Cardiomegaly. OSSEOUS STRUCTURES: No significant abnormalities. VISUALIZED UPPER ABDOMEN: Normal. OTHER FINDINGS: None. IMPRESSION: Poor inspiration with low lung volumes, crowded bronchovascular markings and mild bibasilar atelectasis right greater than left. Developing lower lobe infiltrate could be excluded followup radiographs.
[2017-07-03 19:45] LABS: VENOUS BLOOD GAS BASE EXCESS 17.6 mmol/L (0.0-2.0); VENOUS BLOOD PH 7.52 (7.32-7.43)
[2017-07-03 20:03] LABS: BASO # 0.04 K/mm3 (0.0-2.0); BASO % 0.5 % (0.0-3.0); EOS # 0.1 (0.0-0.7); EOS % 0.7 % (1.5-5.0); GRAN # 5.88 (1.4-6.5); GRAN % 69.4 % (50.0-68.0); LYMPH # 1.9 (1.2-3.4); LYMPH % 21.8 % (22.0-35.0); MEAN CELL VOLUME 79.1 fl (80.0-105.0); MEAN CORPUSCULAR HEMOGLOBIN 27.8 pg (25.0-35.0); MEAN CORPUSCULAR HGB CONC 35.1 g/dl (31.0-37.0); MEAN PLATELET VOLUME 9.8 fl (7.0-11.0); MONO # 0.6 (0.1-0.6); MONO % 7.6 % (1.0-6.0); RED CELL DISTRIBUTION WIDTH 13.5 % (11.5-14.5); WHITE BLOOD COUNT 8.5 10^3/ul (4.5-11.0)
[2017-07-03 20:13] LABS: ALB/GLOB RATIO 1.1 (1.1-1.8); BILIRUBIN,TOTAL 0.7 mg/dL (0.2-1.3); CALCIUM 10.1 mg/dL (8.4-10.5); MAGNESIUM 1.8 mg/dL (1.7-2.2); PHOSPHOROUS 3.8 mg/dL (2.5-4.5); TOTAL PROTEIN 8.1 g/dL (5.8-8.3)
[2017-07-03 20:19] LABS: POTASSIUM 2.9 mmol/L (3.6-5.0)
[2017-07-03 20:23] LABS: TROPONIN I 0.06 ng/mL
--- NOTE | 2017-07-03 21:45 | CARD ---
APPROVED REPORT EKG Measurement Heart [id number] [id number] <Conclusion> Sinus tachycardia Right bundle branch block Left anterior fascicular block Bifascicular block Left ventricular hypertrophy with repolarization abnormality Abnormal ECG
--- NOTE | 2017-07-03 21:55 | CT ---
EXAM: CT Abdomen and Pelvis Without Intravenous Contrast EXAM DATE/TIME: 07/03/2017 8:23 PM CLINICAL HISTORY: 76 years old, female; Pain and signs and symptoms; Vomiting; Abdominal pain; Generalized; Additional info: Abd pain TECHNIQUE: Axial computed tomography images of the abdomen and pelvis without intravenous contrast. All CT scans at this facility use one or more dose reduction techniques, viz.: automated exposure control; ma/kV adjustment per patient size (including targeted exams where dose is matched to indication; i.e. head); or iterative reconstruction technique. Coronal and sagittal reformatted images were created and reviewed. COMPARISON: There are no prior studies for comparison. FINDINGS: Lower thorax: The heart is enlarged. Coronary calcifications. There is a hiatal hernia. There is atelectasis and scarring at the lung bases ABDOMEN: Liver: unremarkable Gallbladder and bile ducts: Gallbladder is distended. There are multiple stones. Common duct is unremarkable. Pancreas: Pancreas is mildly atrophic with fatty replacement. Spleen: unremarkable Adrenals: There is adrenal thickening and nodularity bilaterally. Kidneys and ureters: There is small bilateral renal cysts. Kidneys and ureters are otherwise unremarkable. Stomach and bowel: Stomach is almost empty. Rotation is normal. There is no small bowel obstruction. Terminal ileum is unremarkable. Appendix is not visualized.There is no pericecal inflammation. Colon is incompletely distended which limits evaluation. There is scattered diverticulosis Appendix: See stomach and bowel PELVIS: Bladder: unremarkable Reproductive: Uterus is absent. There are no adnexal masses. ABDOMEN and PELVIS: Intraperitoneal space: There is no significant fluid.There is no free air. Bones/joints: There are degenerative changes in the osseus structures. Soft tissues: There is a small fat containing umbilical hernia. Vasculature: There are phleboliths. There are vascular calcifications. Lymph nodes: There is no pathologic adenopathy. IMPRESSION: Mild cardiomegaly and atherosclerotic disease; gallstones; no acute solid visceral or bowel abnormality, diverticulosis without CT findings of diverticulitis Additional findings as described above.
[2017-07-03 22:55] LABS: VENOUS BLOOD GAS BASE EXCESS 18.5 mmol/L (0.0-2.0); VENOUS BLOOD PH 7.51 (7.32-7.43)
[2017-07-04 06:59] LABS: HEMATOCRIT 34.1 % (36.0-48.0); MEAN CORPUSCULAR HEMOGLOBIN 27.2 pg (25.0-35.0); MEAN PLATELET VOLUME 9.4 fl (7.0-11.0); RED CELL DISTRIBUTION WIDTH 13.7 % (11.5-14.5); WHITE BLOOD COUNT 7.2 10^3/ul (4.5-11.0)
[2017-07-04 07:22] LABS: BILIRUBIN,TOTAL 0.9 mg/dL (0.2-1.3); CALCIUM 9.2 mg/dL (8.4-10.5); TOTAL PROTEIN 7.1 g/dL (5.8-8.3)
--- NOTE | 2017-07-04 07:31 | CP.PCM.HP ---
<Olga Howard - Last Filed: 07/04/17 13:49> History of Present Illness - History of Present Illness History of Present Illness: cc: Nausea and vomiting. Patient is a 76 y/o with pmh HTN, HLD, CAD s/p stents, CVA with left sided residual weakness, NIDDM2 whom presented to [facility] with nausea and vomiting. Patient states the nausea and vomiting started over the weekends. She noted that when she woke up she had no appetite, she forced herself to eat something and started vomiting right afterward. Patient states she has not been able to keep anything down, was vomiting even when she tries to drink water. The vomitus was mostly clear mixed with mucous. Patient states she also had diffuse abdominal pain. Patient has history of constipation and states she has not been able to empty her bowel completely. Patient didn't try taking any medications to alleviate the symptoms at home. Patient denies diarrhea, denies dysurea. Patient lives alone, denies any new foods. Lawrence sick contact. Denies fever, chills, headache or dizziness. Lawrence cp or sob. PMH: HTN, HLD, CAD s/p stents, CVA with left sided residual weakness, NIDDM2, constipation. PSH: Hysterectomy FMH: Mom and dad passed from cancer Social: Lives alone, has an aid, wheelchair bound since stroke. Denies alcohol, tobacco or illicit drug use. Present on Admission - Present on Admission Any Indicators Present on Admission: No History of DVT/PE: No Urinary Catheter: No Decubitus Ulcer Present: No Review of Systems - Review of Systems All systems: reviewed and no additional remarkable complaints except Review of Systems: As per HPI. Past Patient History - Tetanus Immunizations Tetanus Immunization: Unknown - Past Social History Smoking Status: Never Smoked Alcohol: None Drugs: Denies Home Situation {Lives}: Alone - CARDIAC Hx Cardiac Disorders: Yes Hx Congestive Heart Failure: Yes Hx Hypertension: Yes - PULMONARY Hx Respiratory Disorders: No - NEUROLOGICAL HX Cerebrovascular Accident: Yes (x 2,20 yrs. ago and 3 yrs. ago) - HEENT Hx HEENT Problems: Yes Hx Cataracts: Yes (bilateral) - RENAL Hx Chronic Kidney Disease: Yes Hx Kidney Stones: Yes (many years ago x 1) - ENDOCRINE/METABOLIC Hx Diabetes Mellitus Type 2: Yes - HEMATOLOGICAL/ONCOLOGICAL Hx Blood Disorders: No - INTEGUMENTARY Hx Dermatological Problems: No - MUSCULOSKELETAL/RHEUMATOLOGICAL Hx Falls: Yes - GASTROINTESTINAL Hx Gastrointestinal Disorders: No - GENITOURINARY/GYNECOLOGICAL Hx Incontinence: Yes - PSYCHIATRIC Hx Psychophysiologic Disorder: No - SURGICAL HISTORY Hx Coronary Stent: Yes ([place]) Hx Hysterectomy: Yes Other/Comment: right lumpectomy - ANESTHESIA Hx Anesthesia Reactions: No Hx Malignant Hyperthermia: No Meds Allergies/Adverse Reactions: Allergies Allergy/AdvReac Type Severity Reaction Status Date / Time No Known Allergies Allergy Verified 07/03/17 16:17 Physical Exam - Constitutional Appears: No Acute Distress - Head Exam Head Exam: ATRAUMATIC, NORMAL INSPECTION, NORMOCEPHALIC - Eye Exam Eye Exam: EOMI, Normal appearance, PERRL. absent: Scleral icterus Pupil Exam: NORMAL ACCOMODATION, PERRL - ENT Exam ENT Exam: Mucous Membranes Dry - Neck Exam Neck exam: Positive for: Full Rom, Normal Inspection - Respiratory Exam Respiratory Exam: Clear to Auscultation Bilateral, NORMAL BREATHING PATTERN. absent: Rales, Rhonchi, Wheezes, Respiratory Distress, Stridor - Cardiovascular Exam Cardiovascular Exam: REGULAR RHYTHM, RRR, +S1, +S2. absent: Bradycardia, Tachycardia, Gallop, JVD, Rubs, Systolic Murmur - GI/Abdominal Exam GI & Abdominal Exam: Normal Bowel Sounds, Soft. absent: Distended, Firm, Guarding, Rigid, Tenderness Additional comments: Obese abdomen, scar below umbilical, no signs of infection. - Extremities Exam Extremities exam: Positive for: normal inspection. Negative for: pedal edema Additional comments: + Skin discoloration in lower extremities. - Back Exam Back exam: NORMAL INSPECTION - Neurological Exam Neurological exam: Alert, Oriented x3 Additional comments: left upper extremities with contraction, atrophy of the fingers, unable to voluntary move the extremity. Inability to move bilateral lower extremities. - Psychiatric Exam Psychiatric exam: Normal Affect, Normal Mood - Skin Skin Exam: Dry, Warm Additional comments: Skin discoloration in b/l lower extremities. Results - Vital Signs Recent Vital Signs: Last Vital Signs Temp 98.7 F 07/04/17 01:01 Pulse 95 H 07/04/17 01:01 Resp 20 07/04/17 01:01 BP 138/77 07/04/17 01:01 Pulse Ox 95 07/04/17 01:01 - Labs Result Diagrams: 07/04/17 06:30 07/04/17 06:30 Labs: Laboratory Results - last 24 hr 07/03/17 07/04/17 07/04/17 22:50 06:30 06:30 WBC 7.2 RBC 4.26 Hgb 11.6 L Hct 34.1 L MCV 80.0 MCH 27.2 MCHC 34.0 RDW 13.7 Plt Count 382 MPV 9.4 pO2 41 VBG pH 7.51 H VBG pCO2 56.0 VBG HCO3 44.7 H VBG Total CO2 46.4 H VBG O2 Sat (Calc) 85.2 H VBG Base Excess 18.5 H VBG Potassium 2.9 L Sodium 132.0 134 Chloride 82.0 L 84 L Glucose 269 H Lactate 2.0 FiO2 21.0 Potassium 3.0 L Carbon Dioxide 39 H Anion Gap 14 BUN 66 H Creatinine 2.1 H Est GFR ( Amer) 28 Est GFR (Non-Af Amer) 23 POC Glucose (mg/dL) Random Glucose 213 H Calcium 9.2 Total Bilirubin 0.9 AST 44 H ALT 27 Alkaline Phosphatase 93 Total Protein 7.1 Albumin 3.5 Globulin 3.6 Albumin/Globulin Ratio 1.0 L Venous Blood Potassium 2.9 L 07/04/17 07:23 WBC RBC Hgb Hct MCV MCH MCHC RDW Plt Count MPV pO2 VBG pH VBG pCO2 VBG HCO3 VBG Total CO2 VBG O2 Sat (Calc) VBG Base Excess VBG Potassium Sodium Chloride Glucose Lactate FiO2 Potassium Carbon Dioxide Anion Gap BUN Creatinine Est GFR ( Amer) Est GFR (Non-Af Amer) POC Glucose (mg/dL) 207 H Random Glucose Calcium Total Bilirubin AST ALT Alkaline Phosphatase Total Protein Albumin Globulin Albumin/Globulin Ratio Venous Blood Potassium Assessment & Plan - Assessment and Plan (Free Text) Assessment: 1) Gastroenteritis- dysmotility versus obstruction. 2) Metabolic alkalosis 2nd to vomiting 3) Hypokalemia likely 2nd to met alkalosis 4) JAJA likely pre-renal 5) Hyponatremia- 6) Uncontrolled DM 7) Lactic acidosis 8) Acute anemia 9) HTN, 10) HLD, 11) CAD s/p stents, 12) CVA Plan: CT abdomen and pelvis with diverticulosis and gallstones. Nausea and vomiting has resolved. Abdominal u/s to evaluate for acute judith. UA negative, bcx pending. Will attempt po feeding. Zofran prn for nausea, will give colace for constipation. JAJA likely pre-renal. less likely post renal, r/o intrinsic, will obtain urine lytes. Fluid challenge with NS@100 cc/hr. Hyponatremia has resolved with iv hydration. Potassium is being repleted. Will obtain mag and phosphorus. Anemia likely dilutional, will monitor H/H for now. Will hold metformin, and start ISS. Will continue ASA, plavix for CVA/CAD. Patient is also on Lopressor for CAD. Will hold off BP meds due to episode of hypotension. Will continue Lipitor for hld. Heparin sc for DVT prophylaxis, pepcid for gi prophylaxis. - Date & Time Date: 07/04/17 Time: 07:10 <Ross Jiang S - Last Filed: 07/04/17 20:20> Results - Vital Signs Recent Vital Signs: Last Vital Signs Temp 98.4 F 07/04/17 15:55 Pulse 67 07/04/17 19:05 Resp 20 07/04/17 15:55 BP 121/91 H 07/04/17 19:05 Pulse Ox 100 07/04/17 15:55 - Labs Result Diagrams: 07/04/17 06:30 07/04/17 19:45 Labs: Laboratory Results - last 24 hr 07/03/17 07/04/17 07/04/17 22:50 06:30 06:30 WBC 7.2 RBC 4.26 Hgb 11.6 L Hct 34.1 L MCV 80.0 MCH 27.2 MCHC 34.0 RDW 13.7 Plt Count 382 MPV 9.4 pO2 41 VBG pH 7.51 H VBG pCO2 56.0 VBG HCO3 44.7 H VBG Total CO2 46.4 H VBG O2 Sat (Calc) 85.2 H VBG Base Excess 18.5 H VBG Potassium 2.9 L Sodium 132.0 134 Chloride 82.0 L 84 L Glucose 269 H Lactate 2.0 FiO2 21.0 Potassium 3.0 L Carbon Dioxide 39 H Anion Gap 14 BUN 66 H Creatinine 2.1 H Est GFR ( Amer) 28 Est GFR (Non-Af Amer) 23 POC Glucose (mg/dL) Random Glucose 213 H Calcium 9.2 Phosphorus Magnesium Total Bilirubin 0.9 AST 44 H ALT 27 Alkaline Phosphatase 93 Total Protein 7.1 Albumin 3.5 Globulin 3.6 Albumin/Globulin Ratio 1.0 L Venous Blood Potassium 2.9 L Ur Random Creatinine Ur Random Sodium 07/04/17 07/04/17 07/04/17 07:23 08:09 11:13 WBC RBC Hgb Hct MCV MCH MCHC RDW Plt Count MPV pO2 VBG pH VBG pCO2 VBG HCO3 VBG Total CO2 VBG O2 Sat (Calc) VBG Base Excess VBG Potassium Sodium Chloride Glucose Lactate FiO2 Potassium Carbon Dioxide Anion Gap BUN Creatinine Est GFR ( Amer) Est GFR (Non-Af Amer) POC Glucose (mg/dL) 207 H 370 H Random Glucose Calcium Phosphorus 3.4 Magnesium 1.8 Total Bilirubin AST ALT Alkaline Phosphatase Total Protein Albumin Globulin Albumin/Globulin Ratio Venous Blood Potassium Ur Random Creatinine Ur Random Sodium 07/04/17 07/04/17 07/04/17 11:52 11:52 16:12 WBC RBC Hgb Hct MCV MCH MCHC RDW Plt Count MPV pO2 VBG pH VBG pCO2 VBG HCO3 VBG Total CO2 VBG O2 Sat (Calc) VBG Base Excess VBG Potassium Sodium Chloride Glucose Lactate FiO2 Potassium Carbon Dioxide Anion Gap BUN Creatinine Est GFR ( Amer) Est GFR (Non-Af Amer) POC Glucose (mg/dL) 256 H Random Glucose Calcium Phosphorus Magnesium Total Bilirubin AST ALT Alkaline Phosphatase Total Protein Albumin Globulin Albumin/Globulin Ratio Venous Blood Potassium Ur Random Creatinine 81 Ur Random Sodium 64 07/04/17 07/04/17 18:57 19:45 WBC RBC Hgb Hct MCV MCH MCHC RDW Plt Count MPV pO2 VBG pH VBG pCO2 VBG HCO3 VBG Total CO2 VBG O2 Sat (Calc) VBG Base Excess VBG Potassium Sodium Chloride Glucose Lactate FiO2 Potassium 3.8 Carbon Dioxide Anion Gap BUN Creatinine Est GFR ( Amer) Est GFR (Non-Af Amer) POC Glucose (mg/dL) 179 H Random Glucose Calcium Phosphorus Magnesium Total Bilirubin AST ALT Alkaline Phosphatase Total Protein Albumin Globulin Albumin/Globulin Ratio Venous Blood Potassium Ur Random Creatinine Ur Random Sodium Assessment & Plan - Assessment and Plan (Free Text) Plan: Pt seen and examined. Agree with above not of resident. Labs reviewed. Replace K. Eating ok.
[2017-07-04] MEDS: Sodium Chloride 0.9% 1,000 ML IV SCH ×2 (08:48→19:07)
[2017-07-04 08:59] LABS: MAGNESIUM 1.8 mg/dL (1.7-2.2)
[2017-07-04 09:10] LABS: PHOSPHOROUS 3.4 mg/dL (2.5-4.5)
[2017-07-04] MEDS: Potassium Chloride 20 mEq ER Tab PO SCH ×2 (09:46→11:57)
[2017-07-04] MEDS: Insulin Reg-HIGH-Coverage SC SCH ×3 (11:57→22:10)
[2017-07-04] MEDS ORDERED: Potassium Chloride 20 mEq ER Tab PO ONE (20:19)
--- NOTE | 2017-07-04 20:26 | US ---
EXAM: US Abdomen Complete EXAM DATE/TIME: 07/04/2017 8:32 AM CLINICAL HISTORY: The patient age is 76 years old and is female; Pain and abnormal findings; Abnormal lab test; Abnormal kidney function lab tests; Abdominal pain; Additional info: Nausea/vomiting Facility exam id and description: Us abd abdomen complete TECHNIQUE: Real-time ultrasound of the abdomen (complete) with image documentation. COMPARISON: CT - ABD PELVIS W/O PO OR IV CONT 07/03/2017 8:28:29 PM FINDINGS: Liver: The liver is increased in echogenicity, most commonly due to fatty infiltration, but other chronic liver diseases may have a similar appearance. The liver measures 13.6 x 12.9 cm. Gallbladder: Shadowing gallstones are visualized. There is no significant gallbladder wall thickening or pericholecystic fluid. Common bile duct: The common bile duct measures 0.45 cm in diameter, which is within normal limits. Pancreas: There is suboptimal evaluation of the pancreas. The visualized portion of the head and neck of the pancreas appears hyperechoic, which can be associated with fatty infiltration. Kidneys: At the midpole of the right kidney, there is a septated hypoechoic complex cyst measuring 1.7 x 1.6 x 1.6 cm. The right kidney measures 9.7 x 4.0 x 5.0 cm. There is no hydronephrosis of the right kidney. The left kidney measures 10.0 x 5.9 x 5.4 cm. There is no hydronephrosis or shadowing nephrolithiasis within the left kidney. Spleen: The spleen measures 8.0 x 2.8 cm. Evaluation the spleen is suboptimal. Aorta: There is a limited evaluation of the aorta. Inferior vena cava: The visualized segment of the IVC is patent. IMPRESSION: 1. The liver is increased in echogenicity, most commonly due to fatty infiltration, but other chronic liver diseases may have a similar appearance. 2. Cholelithiasis. 3. At the midpole the right kidney, there is a septated hypoechoic complex cyst measuring 1.7 x 1.6 x 1.6 cm. 4. Additional findings described above.
[2017-07-05 07:04] LABS: HEMATOCRIT 36.3 % (36.0-48.0); MEAN CELL VOLUME 81.4 fl (80.0-105.0); MEAN CORPUSCULAR HEMOGLOBIN 27.4 pg (25.0-35.0); MEAN CORPUSCULAR HGB CONC 33.6 g/dl (31.0-37.0); MEAN PLATELET VOLUME 9.7 fl (7.0-11.0); RED CELL DISTRIBUTION WIDTH 13.8 % (11.5-14.5); WHITE BLOOD COUNT 6.1 10^3/ul (4.5-11.0)
[2017-07-05 07:09] LABS: BILIRUBIN,TOTAL 0.7 mg/dL (0.2-1.3); CALCIUM 9.2 mg/dL (8.4-10.5); POTASSIUM 3.8 mmol/L (3.6-5.0); TOTAL PROTEIN 7.1 g/dL (5.8-8.3)
--- NOTE | 2017-07-05 07:58 | CP.PCM.DIS ---
<Olga Howard - Last Filed: 07/05/17 12:34> Provider - Provider Date of Admission: 07/03/17 20:30 Attending physician: Ross Jiang MD Primary care physician: Dr Jiang Consults: None Time Spent in preparation of Discharge (in minutes): 45 Diagnosis - Discharge Diagnosis (1) Hypophosphatemia Status: Acute (2) Hypokalemia Status: Resolved (3) Metabolic alkalosis Status: Resolved (4) Lactic acidosis Status: Resolved (5) Prerenal renal failure Status: Acute (6) Gastroenteritis Status: Resolved (7) JAJA (acute kidney injury) Status: Acute (8) Cholelithiasis Status: Acute (9) Diverticulosis Status: Acute (10) HTN (hypertension) Status: Chronic (11) HLD (hyperlipidemia) Status: Chronic (12) CAD (coronary artery disease) Status: Chronic (13) NIDDY (non-insulin dependent diabetes mellitus in young) Status: Chronic (14) Constipation Status: Chronic (15) CVA, old, hemiparesis Status: Chronic Hospital Course - Lab Results Lab Results: Most Recent Lab Values WBC 6.1 10^3/ul (4.5-11.0) 07/05/17 06:15 RBC 4.46 10^6/uL (3.5-6.1) 07/05/17 06:15 Hgb 12.2 g/dL (12.0-16.0) 07/05/17 06:15 Hct 36.3 % (36.0-48.0) 07/05/17 06:15 MCV 81.4 fl (80.0-105.0) 07/05/17 06:15 MCH 27.4 pg (25.0-35.0) 07/05/17 06:15 MCHC 33.6 g/dl (31.0-37.0) 07/05/17 06:15 RDW 13.8 % (11.5-14.5) 07/05/17 06:15 Plt Count 381 10^3/uL (120.0-450.0) 07/05/17 06:15 MPV 9.7 fl (7.0-11.0) 07/05/17 06:15 Gran % 69.4 % (50.0-68.0) H 07/03/17 19:30 Lymph % (Auto) 21.8 % (22.0-35.0) L 07/03/17 19:30 [place] % (Auto) 7.6 % (1.0-6.0) H 07/03/17 19:30 Eos % (Auto) 0.7 % (1.5-5.0) L 07/03/17 19:30 Baso % (Auto) 0.5 % (0.0-3.0) 07/03/17 19:30 Gran # 5.88 (1.4-6.5) 07/03/17 19:30 Lymph # 1.9 (1.2-3.4) 07/03/17 19:30 [place] # 0.6 (0.1-0.6) 07/03/17 19: Eos # 0.1 (0.0-0.7) 07/03/17 19:30 Baso # 0.04 K/mm3 (0.0-2.0) 07/03/17 19:30 pO2 41 mm/Hg (30-55) 07/03/17 22:50 VBG pH 7.51 (7.32-7.43) H 07/03/17 22:50 VBG pCO2 56.0 (40-60) 07/03/17 22:50 VBG HCO3 44.7 mmol/l (21-28) H 07/03/17 22:50 VBG Total CO2 46.4 mmol.L (22-28) H 07/03/17 22:50 VBG O2 Sat (Calc) 85.2 % (40-65) H 07/03/17 22:50 VBG Base Excess 18.5 mmol/L (0.0-2.0) H 07/03/17 22:50 VBG Potassium 2.9 mmol/L (3.6-5.2) L 07/03/17 22:50 Sodium 132.0 mmol/L (132-148) 07/03/17 22:50 Chloride 82.0 mmol/L (98-107) L 07/03/17 22:50 Glucose 269 mg/dl (65-105) H 07/03/17 22:50 Lactate 2.0 mmol/L (0.7-2.1) 07/03/17 22:50 FiO2 21.0 % 07/03/17 22:50 Sodium 138 mmol/L (132-148) 07/05/17 06:15 Potassium 3.8 mmol/L (3.6-5.0) 07/05/17 06:15 Chloride 98 mmol/L (98-107) D 07/05/17 06:15 Carbon Dioxide 31 mmol/L (21-33) 07/05/17 06:15 Anion Gap 13 (10-20) 07/05/17 06:15 BUN 35 mg/dL (7-21) H 07/05/17 06:15 Creatinine 1.5 mg/dL (0.5-1.4) H 07/05/17 06:15 Est GFR ( Amer) 41 07/05/17 06:15 Est GFR (Non-Af Amer) 34 07/05/17 06:15 POC Glucose (mg/dL) 232 mg/dL (65-110) H 07/05/17 07:31 Random Glucose 203 mg/dL (70-110) H 07/05/17 06:15 Calcium 9.2 mg/dL (8.4-10.5) 07/05/17 06:15 Phosphorus 2.0 mg/dL (2.5-4.5) L 07/05/17 06:15 Magnesium 1.8 mg/dL (1.7-2.2) 07/04/17 08:09 Total Bilirubin 0.7 mg/dL (0.2-1.3) 07/05/17 06:15 AST 39 U/L (15-39) 07/05/17 06:15 ALT 26 U/L (7-56) 07/05/17 06:15 Alkaline Phosphatase 92 U/L (38-133) 07/05/17 06:15 Lactate Dehydrogenase 474 U/L (333-699) 07/03/17 19:30 Total Creatine Kinase 86 U/L (35-230) 07/03/17 19:30 Troponin I 0.06 ng/mL D 07/03/17 19:30 Total Protein 7.1 g/dL (5.8-8.3) 07/05/17 06:15 Albumin 3.6 g/dL (3.0-4.8) 07/05/17 06:15 Globulin 3.5 gm/dL 07/05/17 06:15 Albumin/Globulin Ratio 1.0 (1.1-1.8) L 07/05/17 06:15 Lipase 290 U/L (23-300) 07/03/17 19:30 Venous Blood Potassium 2.9 mmol/L (3.6-5.2) L 07/03/17 22:50 Urine Color Light yellow (YELLOW) 07/03/17 17:05 Urine Appearance Clear (CLEAR) 07/03/17 17:05 Urine pH 6.0 (4.7-8.0) 07/03/17 17:05 Ur Specific [place] 1.010 (1.005-1.035) 07/03/17 17:05 Urine Protein Negative mg/dL (<30 mg/dL) 07/03/17 17:05 Urine Glucose (UA) Negative mg/dL (NEGATIVE) 07/03/17 17:05 Urine Ketones Negative mg/dL (NEGATIVE) 07/03/17 17:05 Urine Blood Negative (NEGATIVE) 07/03/17 17:05 Urine Nitrate Negative (NEGATIVE) 07/03/17 17:05 Urine Bilirubin Negative (NEGATIVE) 07/03/17 17:05 Urine Urobilinogen 0.2 E.U./dL (<1 E.U./dL) 07/03/17 17:05 Ur Leukocyte Esterase Negative Katelyn/uL (NEGATIVE) 07/03/17 17:05 Ur Random Creatinine 81 mg/dL 07/04/17 11:52 Ur Random Sodium 64 meq/L 07/04/17 11:52 - Hospital Course Hospital Course: Patient is a 76 y/o with pmh HTN, HLD, CAD s/p stents, CVA with left sided residual weakness, NIDDM2 whom presented to [facility] with nausea, vomiting, and diffuse abdominal pain for 5 days. In the ED patient had basic labs revealing renal insufficiency and electrolytes imbalance. Patient also had CT abdomen and pelvis which revealed gallstones and diverticulosis. Patient's LRTs were also normal. Patient was admitted for the management of electrolytes. Patient's electrolytes were repleted. The renal insufficiency was deemed to be pre-renal likely 2nd to diarrhea. Patient's responded well to IVF resulting in creatinine to trend down. Furthermore, patient had abdominal u/s which revealed cholelithiasis without cholecystitis. Patient's abdominal pain resolved, no vomiting throughout the admission. Spoke to patient's sister Josey on the phone, patient will be discharged to follow up with Dr Jiang in 1 week. Patient to continue all her home meds including colace 100 bid, Lasix 40 mg daily and klc 10 meq daily. Patient and patient's sister verbalized understanding. - Date & Time of H&P Date of H&P: 07/04/17 Time of H&P: 07:31 Discharge Exam - Head Exam Head Exam: ATRAUMATIC, NORMAL INSPECTION, NORMOCEPHALIC - Eye Exam Eye Exam: EOMI, Normal appearance, PERRL. absent: Scleral icterus Pupil Exam: NORMAL ACCOMODATION, PERRL - ENT Exam ENT Exam: Mucous Membranes Moist - Neck Exam Neck exam: Normal Inspection - Respiratory Exam Respiratory Exam: Clear to PA & Lateral, NORMAL BREATHING PATTERN, UNREMARKABLE. absent: Prolonged Expiratory Phase, Rales, Rhonchi, Wheezes, Respiratory Distress, Stridor - Cardiovascular Exam Cardiovascular Exam: REGULAR RHYTHM, RRR, +S1, +S2. absent: Bradycardia, Tachycardia, Gallop, JVD, Rubs, Systolic Murmur - GI/Abdominal Exam GI & Abdominal Exam: Normal Bowel Sounds, Unremarkable. absent: Distended, Firm , Guarding, Rebound, Rigid, Soft, Tenderness - Extremities Exam Additional comments: No pedal edema Left upper extremities with hand atrophy, left sided hemiparesis. - Back Exam Back exam: NORMAL INSPECTION - Neurological Exam Neurological exam: Alert, Oriented x3 - Psychiatric Exam Psychiatric exam: Normal Affect, Normal Mood - Skin Skin Exam: Dry, Intact, Normal Color, Warm Discharge Plan - Follow Up Plan Condition: STABLE Disposition: HOME/ ROUTINE Patient education suggested?: Yes Instructions: Potassium Phosphate (By injection), Acute Kidney Injury (DC), Regular Diet (DC) Additional Instructions: Please continue with all your home medications. Follow up with Dr Jiang in 1 week. Please come back if you experience fever, chills, chest pain and or shortness of breath. Referrals: [facility], [Non-Staff] - Ross Jiang MD [Staff Provider] - <Ross Jiang - Last Filed: 07/05/17 21:02> Provider - Provider Date of Admission: 07/03/17 20:30 Attending physician: Ross Jiang MD [facility] - Lab Results Lab Results: Most Recent Lab Values WBC 6.1 10^3/ul (4.5-11.0) 07/05/17 06:15 RBC 4.46 10^6/uL (3.5-6.1) 07/05/17 06:15 Hgb 12.2 g/dL (12.0-16.0) 07/05/17 06:15 Hct 36.3 % (36.0-48.0) 07/05/17 06:15 MCV 81.4 fl (80.0-105.0) 07/05/17 06:15 MCH 27.4 pg (25.0-35.0) 07/05/17 06:15 MCHC 33.6 g/dl (31.0-37.0) 07/05/17 06:15 RDW 13.8 % (11.5-14.5) 07/05/17 06:15 Plt Count 381 10^3/uL (120.0-450.0) 07/05/17 06:15 MPV 9.7 fl (7.0-11.0) 07/05/17 06:15 Gran % 69.4 % (50.0-68.0) H 07/03/17 19:30 Lymph % (Auto) 21.8 % (22.0-35.0) L 07/03/17 19:30 [place] % (Auto) 7.6 % (1.0-6.0) H 07/03/17 19:30 Eos % (Auto) 0.7 % (1.5-5.0) L 07/03/17 19:30 Baso % (Auto) 0.5 % (0.0-3.0) 07/03/17 19:30 Gran # 5.88 (1.4-6.5) 07/03/17 19:30 Lymph # 1.9 (1.2-3.4) 07/03/17 19:30 [place] # 0.6 (0.1-0.6) 07/03/17 19:30 Eos # 0.1 (0.0-0.7) 07/03/17 19:30 Baso # 0.04 K/mm3 (0.0-2.0) 07/03/17 19:30 pO2 41 mm/Hg (30-55) 07/03/17 22:50 VBG pH 7.51 (7.32-7.43) H 07/03/17 22:50 VBG pCO2 56.0 (40-60) 07/03/17 22:50 VBG HCO3 44.7 mmol/l (21-28) H 07/03/17 22:50 VBG Total CO2 46.4 mmol.L (22-28) H 07/03/17 22:50 VBG O2 Sat (Calc) 85.2 % (40-65) H 07/03/17 22:50 VBG Base Excess 18.5 mmol/L (0.0-2.0) H 07/03/17 22:50 VBG Potassium 2.9 mmol/L (3.6-5.2) L 07/03/17 22:50 Sodium 132.0 mmol/L (132-148) 07/03/17 22:50 Chloride 82.0 mmol/L (98-107) L 07/03/17 22:50 Glucose 269 mg/dl (65-105) H 07/03/17 22:50 Lactate 2.0 mmol/L (0.7-2.1) 07/03/17 22:50 FiO2 21.0 % 07/03/17 22:50 Sodium 138 mmol/L (132-148) 07/05/17 06:15 Potassium 3.8 mmol/L (3.6-5.0) 07/05/17 06:15 Chloride 98 mmol/L (98-107) D 07/05/17 06:15 Carbon Dioxide 31 mmol/L (21-33) 07/05/17 06:15 Anion Gap 13 (10-20) 07/05/17 06:15 BUN 35 mg/dL (7-21) H 07/05/17 06:15 Creatinine 1.5 mg/dL (0.5-1.4) H 07/05/17 06:15 Est GFR ( Amer) 41 07/05/17 06:15 Est GFR (Non-Af Amer) 34 07/05/17 06:15 POC Glucose (mg/dL) 281 mg/dL (65-110) H 07/05/17 11:55 Random Glucose 203 mg/dL (70-110) H 07/05/17 06:15 Calcium 9.2 mg/dL (8.4-10.5) 07/05/17 06:15 Phosphorus 2.0 mg/dL (2.5-4.5) L 07/05/17 06:15 Magnesium 1.8 mg/dL (1.7-2.2) 07/04/17 08:09 Total Bilirubin 0.7 mg/dL (0.2-1.3) 07/05/17 06:15 AST 39 U/L (15-39) 07/05/17 06:15 ALT 26 U/L (7-56) 07/05/17 06:15 Alkaline Phosphatase 92 U/L (38-133) 07/05/17 06:15 Lactate Dehydrogenase 474 U/L (333-699) 07/03/17 19:30 Total Creatine Kinase 86 U/L (35-230) 07/03/17 19:30 Troponin I 0.06 ng/mL D 07/03/17 19:30 Total Protein 7.1 g/dL (5.8-8.3) 07/05/17 06:15 Albumin 3.6 g/dL (3.0-4.8) 07/05/17 06:15 Globulin 3.5 gm/dL 07/05/17 06:15 Albumin/Globulin Ratio 1.0 (1.1-1.8) L 07/05/17 06:15 Lipase 290 U/L (23-300) 07/03/17 19:30 Venous Blood Potassium 2.9 mmol/L (3.6-5.2) L 07/03/17 22:50 Urine Color Light yellow (YELLOW) 07/03/17 17:05 Urine Appearance Clear (CLEAR) 07/03/17 17:05 Urine pH 6.0 (4.7-8.0) 07/03/17 17:05 Ur Specific [place] 1.010 (1.005-1.035) 07/03/17 17:05 Urine Protein Negative mg/dL (<30 mg/dL) 07/03/17 17:05 Urine Glucose (UA) Negative mg/dL (NEGATIVE) 07/03/17 17:05 Urine Ketones Negative mg/dL (NEGATIVE) 07/03/17 17:05 Urine Blood Negative (NEGATIVE) 07/03/17 17:05 Urine Nitrate Negative (NEGATIVE) 07/03/17 17:05 Urine Bilirubin Negative (NEGATIVE) 07/03/17 17:05 Urine Urobilinogen 0.2 E.U./dL (<1 E.U./dL) 07/03/17 17:05 Ur Leukocyte Esterase Negative Katelyn/uL (NEGATIVE) 07/03/17 17:05 Ur Random Creatinine 81 mg/dL 07/04/17 11:52 Ur Random Sodium 64 meq/L 07/04/17 11:52 Urine Chloride 39 mmol/L (32-290) 07/04/17 11:52 - Hospital Course Hospital Course: Pt seen and examined. Resident note reviewed and I agree with it. Will f/u as outpt. Feels better.
[2017-07-05] MEDS: Insulin Reg-HIGH-Coverage SC SCH ×3 (08:25→17:41)
[2017-07-05 08:27] LABS: CHLORIDE URINE 39 mmol/L (32-290)
[2017-07-05] MEDS ORDERED: Potassium Phosphate 15 MMOLE in Sodium Chloride 0.9% 250 ML IVPB ONE (09:00)
[2017-07-05] MEDS: Sodium Chloride 0.9% 1,000 ML IV SCH (10:01)
[2017-07-05 17:04] VITALS: RESP 20; TEMP 99.2; O2SAT 97
[2017-07-05 17:52] VITALS: BP 170/83; PULSE 78
== END 2017-07-05 19:26 | disposition home or self-care (01) | DRG 683 ==
LOC: ED 15:29 → ERH 20:30 → 5RNO 22:18
PROVIDERS: ADMIT Internal Medicine Nephrology; ATTEND Internal Medicine Nephrology
DX: N17.9 Acute kidney failure, unspecified (principal); E87.4 Mixed disorder of acid-base balance; E87.1 Hypo-osmolality and hyponatremia; I13.0 Hypertensive heart and chronic kidney disease with heart failure and stage 1 through stage 4 chronic kidney disease, or unspecified chronic kidney disease; I69.354 Hemiplegia and hemiparesis following cerebral infarction affecting left non-dominant side; I50.9 Heart failure, unspecified; E11.65 Type 2 diabetes mellitus with hyperglycemia; E83.39 Other disorders of phosphorus metabolism; E87.6 Hypokalemia; K52.9 Noninfective gastroenteritis and colitis, unspecified; K57.90 Diverticulosis of intestine, part unspecified, without perforation or abscess without bleeding; K80.20 Calculus of gallbladder without cholecystitis without obstruction; E78.5 Hyperlipidemia, unspecified; K59.00 Constipation, unspecified; N18.9 Chronic kidney disease, unspecified; D64.9 Anemia, unspecified; I25.10 Atherosclerotic heart disease of native coronary artery without angina pectoris; Z79.84 Long term (current) use of oral hypoglycemic drugs; Z95.5 Presence of coronary angioplasty implant and graft; Z99.3 Dependence on wheelchair

== ENCOUNTER 2019-02-03 12:46 | Outpatient (CLI) | payer MEDICARE, MEDICAID | END 2019-02-03 12:47 | disposition home or self-care (01) | LOC: RAD 12:46 ==